=== PATIENT | female | born 1940 | race Caucasian/White ===

== ENCOUNTER 2018-03-25 13:37 | Day surgery (SDC) | payer OTHER ==
[~2018-03-25] VITALS: Ht 172.7 cm; Wt 87.6 kg
[2018-03-25] MEDS ORDERED: Omeprazole20 M1 PO (14:01)
[2018-03-25] MEDS ORDERED: Lisinopril2.5 MG PO (14:01)
[2018-03-25] MEDS ORDERED: CLON.1 PO (14:02)
[2018-03-25] MEDS ORDERED: Inderal60 MG PO (14:03)
== END 2018-03-25 15:13 | disposition home or self-care (01) ==
LOC: ORSCSDS 13:37
PROVIDERS: Anesthesiology
PROC: 3E0R33Z Introduction of Anti-inflammatory into Spinal Canal, Percutaneous Approach (ICD-10-PCS; principal; 2018-03-25 14:45)
DX: M50.322 Other cervical disc degeneration at C5-C6 level (principal); M48.02 Spinal stenosis, cervical region; K21.9 Gastro-esophageal reflux disease without esophagitis; I10 Essential (primary) hypertension; Z79.82 Long term (current) use of aspirin; Z79.899 Other long term (current) drug therapy
CPT/HCPCS: J1040; J2250; J3010; J7120

== ENCOUNTER 2020-01-31 11:29 | Day surgery (SDC) | payer OTHER ==
[~2020-01-31] VITALS: Ht 172.7 cm; Wt 85.9 kg
[~2020-01-31 11:29] MED LIST: CHELATED POTASSIUM PO; CLON.1 PO; Icaps Areds Fo1 EACH PO; Inderal60 MG PO; LISI20 PO; Lisinopril2.5 MG PO; MULTIPLE VITAM1 EACH PO; OMEP20ER PO; Omeprazole20 M1 PO; PROP60 PO; Vitamin D2000 UNIT PO
--- NOTE | 2020-01-31 12:26 | NUR ---
01/31/20 1226 Vero Torres FENTANYL AND VERSED GIVEN PER VERBAL ORDER FROM DR. BENNETT.
--- NOTE | 2020-01-31 12:54 | NUR ---
01/31/20 1254 GRANT BURNETTE PT CAME OUT IN RECLINER. DENIES PAIN/NAUSEA. TOLERATING PO INTAKE. IV DC'D. NOTIFIED OF RECOVERY - NO ANSWER. PT DENIES QUESTIONS OR CONCERNS WITH DISCHRAGE INSTRUCTIONS.
== END 2020-01-31 12:54 | disposition home or self-care (01) ==
LOC: ORSCSDS 11:29
PROVIDERS: Anesthesiology
PROC: 3E0R33Z Introduction of Anti-inflammatory into Spinal Canal, Percutaneous Approach (ICD-10-PCS; principal; 2020-01-31 12:30)
PROC: 3E0R3BZ Introduction of Anesthetic Agent into Spinal Canal, Percutaneous Approach (ICD-10-PCS; principal; 2020-01-31 12:30)
DX: M50.122 Cervical disc disorder at C5-C6 level with radiculopathy (principal); I10 Essential (primary) hypertension; K21.9 Gastro-esophageal reflux disease without esophagitis; Z79.899 Other long term (current) drug therapy
CPT/HCPCS: J2250; J3010

== ENCOUNTER 2020-03-15 10:48 | Day surgery (SDC) | payer OTHER ==
[~2020-03-15] VITALS: Ht 170.2 cm; Wt 88.6 kg
[2020-03-15] MEDS ORDERED: AMLODIPINE BESYL5 MG PO (11:30)
--- NOTE | 2020-03-15 12:14 | NUR ---
03/15/20 1214 Va Desouza USED [address] 10CC
== END 2020-03-15 12:32 | disposition home or self-care (01) ==
LOC: ORSCSDS 10:48
PROVIDERS: Anesthesiology
PROC: 3E0R33Z Introduction of Anti-inflammatory into Spinal Canal, Percutaneous Approach (ICD-10-PCS; principal; 2020-03-15 11:45)
DX: M50.122 Cervical disc disorder at C5-C6 level with radiculopathy (principal); I10 Essential (primary) hypertension; K21.9 Gastro-esophageal reflux disease without esophagitis; Z79.899 Other long term (current) drug therapy
CPT/HCPCS: J1040; J2250; J3010; J7040

== ENCOUNTER 2020-10-29 09:37 | Day surgery (SDC) | payer OTHER ==
[~2020-10-29] VITALS: Ht 170.2 cm; Wt 82.3 kg
[~2020-10-29 09:37] MED LIST changes: +AMLODIPINE BESYL5 MG PO
--- NOTE | 2020-10-29 10:04 | NUR ---
History, Chart, Medications and Allergies reviewed before start of procedure. Patient confirms NPO status and agrees with scheduled surgery. Lungs clear T/O to Auscultation.
--- NOTE | 2020-10-29 10:07 | NUR ---
PATIENT PUT RING AND WATCH IN HER PERSONAL BELONGING BAG FOR SAFE KEEPING.
[2020-10-29] MEDS ORDERED: OLME20 PO (10:15)
--- NOTE | 2020-10-29 10:43 | NUR ---
NOZIN NASAL DIRECTOR LIFE X3 AMPULES USED TO CLEAN NARES BILAT PER DR MATT' ORDER. KNEE HIGH MARIA R HOSE AND CALF PAS APPLIED TO LLE.
--- NOTE | 2020-10-29 11:48 | NUR ---
ASSUMED CARE AND REPORT FROM ROSALINO MCBRIDE RN. PT AWAKE AND ORIENTED, READING A BOOK.
--- NOTE | 2020-10-29 12:05 | NUR ---
UP TO BEDSIDE COMMODE TO VOID.
--- NOTE | 2020-10-29 16:00 | NUR ---
PT TO ROOM 217 S/P R TKA. DRESSING CDI, POLAR PACK IN PLACE. DENIES PAIN; REPORTS NUMBNESS FROM HIPS/THIGHS DOWN. PT IS A/O X4, EATING AND DRINKING W/O NAUSEA. SECOND DOSE TXA GIVEN.
--- NOTE | 2020-10-29 19:37 | NUR ---
SHIFT SUMMARY PT S/P R TKA TODAY. PT IS A/O X4, TOLERATING PO INTAKE W/O NAUSEA. DENIES PAIN IN R KNEE. SPINAL ANESTHESIA STILL WEARING OFF; PT ABLE TO WIGGLE TOES BUT STILL HAS NUBNESS IN BLE. ISAIAH/AQUACEL/POLAR PACK IN PLACE.
[2020-10-30 04:51] LABS: BASOPHILS ABSOLUTE AUTO 0.04 K/mm3 (0.00-0.23); BASOPHILS PERCENT AUTO 1 % (0-2); EOSINOPHILS PERCENT AUTO 4 % (0-6); Hematocrit 34.7 % (33.0-51.0); Hemoglobin 11.7 g/dL (11.5-16.0); IMMATURE GRAN ABSOLUTE AUTO 0.01 K/mm3 (0.00-0.10); IMMATURE GRAN PERCENT AUTO 0 % (0-1); LYMPHOCYTES ABSOLUTE AUTO 0.83 K/mm3 (0.84-5.20); LYMPHOCYTES PERCENT AUTO 11 % (21-46); MONOCYTES ABSOLUTE AUTO 0.67 K/mm3 (0.16-1.47); MONOCYTES PERCENT AUTO 9 % (4-13); Mean Corpuscular HGB 31.5 pg (26.0-34.0); Mean Corpuscular HGB Conc 33.7 g/dL (31.5-36.5); Mean Corpuscular Volume 94 fL (80-100); Mean Platelet Volume 8.9 fL (9.1-12.4); NEUTROPHILS ABSOLUTE AUTO 5.82 K/mm3 (1.96-9.15); NEUTROPHILS PERCENT AUTO 76 % (41-73); Platelet Count 228 K/mm3 (150-400); RDW Coefficient Variation 11.9 % (11.7-14.2); RDW Standard Deviation 41.4 fL (35.1-46.3); Red Blood Cell Count 3.71 M/mm3 (3.80-5.20); White Blood Cell Count 7.67 K/mm3 (4.00-11.30)
[2020-10-30 05:25] LABS: Anion Gap 6 mmol/L (6-16); Blood Urea Nitrogen 13 mg/dL (8-24); Bun/Creatinine Ratio 19.5 (12.0-20.0); CO2, Blood 27 mmol/L (21-32); Calcium, Blood 8.7 mg/dL (8.5-10.1); Chloride, Blood 93 mmol/L (98-108); Creatinine, Blood 0.67 mg/dL (0.40-1.00); Glomerular Filtration Rate >60 (60-); Glucose, Blood 122 mg/dL (70-99); Potassium, Blood 4.1 mmol/L (3.5-5.5); Sodium, Blood 126 mmol/L (136-145)
--- NOTE | 2020-10-30 07:32 | NUR ---
SHIFT SUMMARY POD1 FOR R TKA WITH . R KNEE WITH ISAIAH WRAPED, CDI. POLAR PACK IN PLACED. PT REPORTS PAIN ON R KNEE AND SOME TWITCHING FEELING THAT MAKES HER NAUSEA AT TIMES. PAIN MANAGED WITH TORADOL, TYLENOL AND DILAUDID X1 AT NIGHT. PT VOIDING ADEQUATELY WITHOUT ANY ISSUES. USED THE BSC WITH 1 SBA. NAUSEA TREATED WITH ZOFRAN. TOLERATING PO DENIES VOMITING. WB LIDIA ON RLE. RLE WITH ISAIAH WRAP, CDI. VSS. CALL LIGHT WITHIN REACH. REPORT GIVEN TO ROBERTO PARKER.
[2020-10-30] MEDS ORDERED: ASPI81CH PO (09:43)
[2020-10-30] MEDS ORDERED: Percocet 5-3251 EACH PO (09:43)
--- NOTE | 2020-10-30 12:43 | NUR ---
DISCHARGE SUMMARY PATIENT ALERT AND ORIENTED THROUGHOUT AM. TOLERATING REGULAR DIET AND FLUIDS. VOIDING WELL. CLEARED PHYSICAL THERAPY. PAIN CONTROLLED WITH PO PAIN MEDS. AQUACEL C/D/I WITH MARIA R HOSE AND ISAIAH WRAP IN PLACE. DISCHARGE EDUCATION GIVEN ON NEW RX'S, WOUND CARE, DIET, ACTIVITY, AND FOLLOW UP APPTS. PATIENT LEFT UNIT AT 1240 VIA WHEELCHAIR FOR HOME WITH SPOUSE.
== END 2020-10-30 12:35 | disposition home or self-care (01) ==
LOC: ORSCMMR 09:37 → ORD 11:00 → SURS 15:23 → ORSCMMR 15:23 → SURS 10-30 12:35 → ORSCMMR 10-30 12:35
PROVIDERS: Orthopaedic Surgery
PROC: 0SRC0JA Replacement of Right Knee Joint with Synthetic Substitute, Uncemented, Open Approach (ICD-10-PCS; principal; 2020-10-29 11:00)
PROC: 8E0YXBZ Computer Assisted Procedure of Lower Extremity (ICD-10-PCS; principal; 2020-10-29 11:00)
DX: M17.11 Unilateral primary osteoarthritis, right knee (principal); I10 Essential (primary) hypertension; K21.9 Gastro-esophageal reflux disease without esophagitis
CPT/HCPCS: 36415; 73560-RT; 80048; 85025; 97110; 97116; 97162; 97530; A9270; C1776; J0171; J0690; J0735; J1170; J1885; J2370; J2405; J2704; J2795; J3010; J7120

== ENCOUNTER 2023-04-13 08:16 | Day surgery (SDC) | payer OTHER ==
[~2023-04-13] VITALS: Ht 172.7 cm; Wt 98.3 kg
[~2023-04-13 08:16] MED LIST changes: +ASPI81CH PO; +OLME20 PO; +Percocet 5-3251 EACH PO
[2023-04-13] MEDS ORDERED: OLMESARTAN MEDO40 MG PO (08:39)
[2023-04-13] MEDS ORDERED: Inderal60 MG PO (08:41)
[2023-04-13 09:52] VITALS: BP 159/95
--- NOTE | 2023-04-13 09:58 | NUR ---
04/13/23 0958 MADDY TABOR DENIES TYLENOL. HAS SOME AT HOME.
[2023-04-16] MEDS ORDERED: ATEN25 (10:39)
[2023-04-16] MEDS ORDERED: ATENOLOL (10:42)
[2023-04-16] MEDS ORDERED: LISI20 PO (10:43)
[2023-04-16] MEDS ORDERED: ONDA4 PO (10:45)
== END 2023-04-13 10:13 | disposition home or self-care (01) ==
LOC: ORSCSDS 08:16
PROVIDERS: Student in an Organized Health Care Education/Training Program
PROC: 08RJ3JZ Replacement of Right Lens with Synthetic Substitute, Percutaneous Approach (ICD-10-PCS; principal; 2023-04-13 09:30)
DX: H25.13 Age-related nuclear cataract, bilateral (principal); I10 Essential (primary) hypertension; K21.9 Gastro-esophageal reflux disease without esophagitis; E66.9 Obesity, unspecified; Z68.33 Body mass index [BMI] 33.0-33.9, adult; Z79.899 Other long term (current) drug therapy
CPT/HCPCS: J3010; J7040; V2632

== ENCOUNTER 2023-04-27 09:46 | Day surgery (SDC) | payer OTHER ==
[~2023-04-27] VITALS: Ht 175.3 cm; Wt 98.6 kg
[~2023-04-27 09:46] MED LIST changes: +ATEN25; +ATENOLOL; +OLMESARTAN MEDO40 MG PO; +ONDA4 PO
[2023-04-27] MEDS ORDERED: OLMESARTAN MEDO40 MG PO (10:03)
--- NOTE | 2023-04-27 10:08 | NUR ---
04/27/23 1008 Elsa Boudreaux AT 1003 PLEDGET AT 1008
[2023-04-27 10:54] VITALS: BP 157/72
== END 2023-04-27 11:07 | disposition home or self-care (01) ==
LOC: ORSCSDS 09:46
PROVIDERS: Student in an Organized Health Care Education/Training Program
PROC: 08RK3JZ Replacement of Left Lens with Synthetic Substitute, Percutaneous Approach (ICD-10-PCS; principal; 2023-04-27 11:00)
DX: H25.12 Age-related nuclear cataract, left eye (principal); Z96.1 Presence of intraocular lens; K21.9 Gastro-esophageal reflux disease without esophagitis; I10 Essential (primary) hypertension; E66.9 Obesity, unspecified; Z68.32 Body mass index [BMI] 32.0-32.9, adult; Z79.899 Other long term (current) drug therapy
CPT/HCPCS: J2250; J3010; J7040; V2632